=== PATIENT | female | born 1965 ===

== ENCOUNTER 2017-12-22 13:29 | Emergency (ER) | payer MEDICAID ==
[2017-12-22 13:29] VITALS: BMI 21.7
[2017-12-22] MEDS ORDERED: Sodium Chloride 0.9% 1,000 ML ONE ×2 (13:52→17:49)
[2017-12-22] MEDS ORDERED: Sodium Chloride 0.9% 1,000 ML IV ONE ×2 (14:17→16:12)
--- NOTE | 2017-12-22 14:44 | C.PDOC ---
History Of Present Illness 51 year old female with HX of kidney stones is brought by EMS for evaluation of multiple episodes of vomit, diarrhea that started this morning at 07:00. Patient states her LMP was this past Wednesday. Patient denies fever, chills, nausea, back pain, dysuria, hematuria, vaginal bleeding, vaginal discharge. Time Seen by Provider: 12/22/17 13:53 Chief Complaint (Nursing): Abdominal Pain History Per: Patient History/Exam Limitations: no limitations Onset/Duration Of Symptoms: Hrs Current Symptoms Are (Timing): Still Present Location Of Pain/Discomfort: Epigastric Radiation Of Pain To:: None Associated Symptoms: Vomiting, Diarrhea Exacerbating Factors: None Alleviating Factors: None Recent travel outside of the [place]: No Additional History Per: Patient Abnormal Vaginal Bleeding: No Last Menstral Period: Wednesday Past Medical History Reviewed: Historical Data, Nursing Documentation, Vital Signs Vital Signs: Last Vital Signs Temp 98.2 F 12/22/17 18:01 Pulse 67 12/22/17 18:01 Resp 18 12/22/17 18:01 BP 122/71 12/22/17 18:01 Pulse Ox 100 12/22/17 18:01 - Medical History PMH: Asthma, HTN Surgical History: No Surg Hx - [facility] Procedures ESOPHAGOGASTRODUODENOSCOPY [EGD] W/CLOSED BIOPSY (01/07/15) EXTIRPATION OF MATTER FROM RIGHT URETER, ENDO (07/22/17) FLUOROSCOPY KIDNEY, URETER, BLADDER, R W L OSM CONTRAST (07/22/17) Family History: States: Unknown Family Hx - Social History Hx Alcohol Use: No Hx Substance Use: No - Immunization History Hx Tetanus Toxoid Vaccination: No Hx Influenza Vaccination: No Hx Pneumococcal Vaccination: No Review Of Systems Constitutional: Negative for: Fever, Chills Cardiovascular: Negative for: Chest Pain, Palpitations Respiratory: Negative for: Cough, Shortness of Breath Gastrointestinal: Positive for: Vomiting, Diarrhea Genitourinary: Negative for: Dysuria, Hematuria, Vaginal Discharge, Vaginal Bleeding Skin: Negative for: Rash Neurological: Negative for: Weakness, Numbness Physical Exam - Physical Exam Appears: Non-toxic, No Acute Distress Skin: Normal Color, Warm, Dry Head: Atraumatic, Normacephalic Eye(s): bilateral: Normal Inspection Nose: No Discharge, No Deformity Oral Mucosa: Moist Neck: Normal ROM, Supple Chest: Symmetrical Cardiovascular: Rhythm Regular, No Murmur Respiratory: Normal Breath Sounds, No Rales, No Rhonchi, No Wheezing Gastrointestinal/Abdominal: Soft, Tenderness (epigastric), No Guarding, No Rebound Extremity: Normal ROM, No Pedal Edema, No Calf Tenderness, No Deformity, No Swelling Neurological/Psych: Oriented x3, Normal Speech, Normal Cognition Gait: Steady ED Course And Treatment - Laboratory Results Result Diagrams: 12/22/17 15:06 12/22/17 15:06 Lab Interpretation: No Acute Changes O2 Sat by Pulse Oximetry: 100 (On RA) Pulse Ox Interpretation: Normal Progress Note: Treated with IVF NSS x 2 L, zofran. on re-evaluation C/O nausea treated with reglan 10 mg IV. On re-evaluation abdomen soft non-tender. Treated with pepcid 20 mg IV and zofran 4 mg IV. Tolerating PO. Discharged in stable condition Reassessment Condition: Improved Medical Decision Making Medical Decision Making: Impression : vomit, diarrhea Plan: * Labs * Bentyl 20 mg IM * IV fluids * Zofran 4 mg IVP * UA Disposition Counseled Patient/Family Regarding: Studies Performed, Diagnosis, Need For Followup, Rx Given - Disposition Referrals: [place] [email or web address] [Outside] [facility] [Outside] Disposition: HOME/ ROUTINE Disposition Time: 18:00 Condition: IMPROVED Additional Instructions: Follow up with PMD for further evaluation Prescriptions: Ondansetron ODT [Zofran ODT] 1 odt PO BID PRN #6 odt PRN Reason: Nausea/Vomiting Instructions: Gastroenteritis (ED) Forms: [facility] ([place]) - Clinical Impression Clinical Impression: Nausea, Vomiting, Diarrhea - PA / [employer] / Resident Statement MD/DO has reviewed & agrees with the documentation as recorded. - Scribe Statement The provider has reviewed the documentation as recorded by the Scribe Christopher Delaney All medical record entries made by the Scribe were at my direction and personally dictated by me. I have reviewed the chart and agree that the record accurately reflects my personal performance of the history, physical exam, medical decision making, and the department course for this patient. I have also personally directed, reviewed, and agree with the discharge instructions and disposition.
[2017-12-22 15:12] LABS: BASO % 0.2 % (0.0-2.0); EOS % 0.1 % (0.0-4.0); HEMOGLOBIN 14.9 g/dL (11.0-16.0); LYMPH # 0.4 K/uL (1.0-4.3); LYMPH % 3.6 % (20.0-40.0); MEAN CELL VOLUME 92.3 fL (81.0-99.0); MEAN CORPUSCULAR HEMOGLOBIN 31.7 pg (27.0-31.0); MEAN CORPUSCULAR HGB CONC 34.3 g/dL (33.0-37.0); MEAN PLATELET VOLUME 11.4 fL (7.2-11.7); MONO # 0.3 K/uL (0.0-0.8); MONO % 2.6 % (0.0-10.0); NEUT # 10.6 K/uL (1.8-7.0); NEUT % 93.5 % (50.0-75.0); PLATELET COUNT 199 K/uL (130-400); RBC 4.71 Mil/uL (3.80-5.20); WHITE BLOOD COUNT 11.4 K/uL (4.8-10.8)
[2017-12-22 15:21] LABS: HCG,QUALITATIVE URINE NEGATIVE (NEGATIVE)
[2017-12-22 15:23] LABS: SQUAMOUS EPITHIAL 4 /hpf (0-5); URINE BILIRUBIN NEGATIVE (NEGATIVE); URINE BLOOD NEGATIVE (NEGATIVE); URINE CLARITY Hazy (Clear); URINE COLOR Yellow (YELLOW); URINE GLUCOSE (UA) NORMAL (Normal); URINE LEUKOCYTE ESTERASE NEG Leu/uL (Negative); URINE NITRATE NEGATIVE (NEGATIVE); URINE PROTEIN NEGATIVE (NEGATIVE); URINE UROBILINOGEN NORMAL mg/dL (0.2-1.0)
[2017-12-22 15:33] LABS: ALB/GLOB RATIO 1.3 (1.0-2.1); ALBUMIN 4.5 g/dL (3.5-5.0); ALT/SGPT 24 U/L (9-52); AST/SGOT 18 U/L (14-36); BLOOD UREA NITROGEN 17 mg/dL (7-17); GFR AFRICAN-AMERICAN > 60; GFR NON-AFRICAN AMERICAN > 60; LIPASE 38 U/L (23-300)
[2017-12-22 15:50] VITALS: RESP 18
[2017-12-22 16:14] LABS: LYMPHOCYTE 4 % (20-40); MONOCYTE 4 % (0-10); NEUTROPHIL 92 % (50-75); PLATELET ESTIMATE NORMAL (NORMAL); TOTAL CELLS COUNTED 100
[2017-12-22 19:50] VITALS: BP 133/80; PULSE 64; TEMP 98.1; O2SAT 99
== END 2017-12-22 19:54 | disposition home or self-care (01) ==
LOC: C.ER 13:29
DX: R11.2 Nausea with vomiting, unspecified (principal); R19.7 Diarrhea, unspecified
CPT/HCPCS: 80053; 81001; 83690; 84703; 85025; 96361; 96372; 96374; 96375; 96376; 99285; J0500; J2405; J2765; J7040